=== PATIENT | female | born 1975 | race Caucasian/White ===

== ENCOUNTER 2019-04-13 18:11 | Emergency (ER) ==
[~2019-04-13] VITALS: Ht 162.6 cm; Wt 54.6 kg
[2019-04-13] MEDS ORDERED: PENI500T2 PO ×2 (18:58→19:02)
[2019-04-13] MEDS ORDERED: IBUP-1984 PO (18:58)
[2019-04-13 19:23] VITALS: BP 141/86
== END 2019-04-13 19:24 | disposition home or self-care (01) ==
LOC: ER 18:12
DX: K04.7 Periapical abscess without sinus (principal); K02.9 Dental caries, unspecified; Z79.2 Long term (current) use of antibiotics; Z79.899 Other long term (current) drug therapy
CPT/HCPCS: 99283

== ENCOUNTER 2021-10-21 02:39 | Emergency (ER) | payer MEDICAID ==
[~2021-10-21] VITALS: Ht 162.6 cm; Wt 56.8 kg
[~2021-10-21 02:39] MED LIST: PENI500T2 PO
[2021-10-21] MEDS ORDERED: ibuprofen tablet 400 MG TABLET PO ONE (02:50)
[2021-10-21] MEDS ORDERED: acetaminophen 325mg tablet PO ONE (02:50)
[2021-10-21] MEDS ORDERED: IBUP-1984 PO (03:11)
[2021-10-21] MEDS ORDERED: ACET-812 PO (03:11)
[2021-10-21 03:27] VITALS: BP 100/74
== END 2021-10-21 03:29 | disposition home or self-care (01) ==
LOC: ER 02:39
DX: S62.101A Fracture of unspecified carpal bone, right wrist, initial encounter for closed fracture (principal); Z88.2 Allergy status to sulfonamides; Z88.8 Allergy status to other drugs, medicaments and biological substances; Z79.2 Long term (current) use of antibiotics; Z79.899 Other long term (current) drug therapy; W17.89XA Other fall from one level to another, initial encounter; Z91.81 History of falling; Y93.89 Activity, other specified; Y92.89 Other specified places as the place of occurrence of the external cause; Y99.8 Other external cause status
CPT/HCPCS: 29125; 73110; 99284

== ENCOUNTER 2021-12-03 18:10 | Emergency (ER) | payer MEDICAID ==
[~2021-12-03] VITALS: Ht 162.6 cm; Wt 56.8 kg
[~2021-12-03 18:10] MED LIST changes: +ACET-812 PO
[2021-12-03 18:30] VITALS: BP 168/98
== END 2021-12-03 19:23 | disposition left against medical advice (07) ==
LOC: ER 18:10
DX: K08.89 Other specified disorders of teeth and supporting structures (principal); Z53.21 Procedure and treatment not carried out due to patient leaving prior to being seen by health care provider
CPT/HCPCS: 12011; 90471; 96365; 99285

== ENCOUNTER 2022-11-23 07:32 | Emergency (ER) | payer MEDICAID ==
[~2022-11-23] VITALS: Ht 162.6 cm; Wt 64.8 kg
[2022-11-23 07:45] VITALS: BP 148/92
== END 2022-11-23 10:14 | disposition home or self-care (01) ==
LOC: ER 07:33
DX: M25.531 Pain in right wrist (principal); Z88.2 Allergy status to sulfonamides; Z88.1 Allergy status to other antibiotic agents
CPT/HCPCS: 73110; 99283